=== PATIENT | female | born 1950 | race Two or more races ===

== ENCOUNTER 2017-10-03 10:13 | Outpatient (CLI) | payer OTHER ==
[~2017-10-03 10:13] MED LIST: KETO10TA2 PO
== END 2017-10-03 11:23 | disposition home or self-care (01) ==
LOC: SONOGRAMA 10:13
DX: E04.1 Nontoxic single thyroid nodule (principal); E03.8 Other specified hypothyroidism

== ENCOUNTER → 2018-01-31 | Day surgery (SDC) | payer OTHER ==
[~2018-01-31] MED LIST changes: +COZAAR50 MG PO; +PERCOCET 5-3251 EACH PO; +SYNTHROID50 MCG PO; +ZOCOR20 MG PO
== END | disposition home or self-care (01) ==
LOC: ADM 01-24 08:30 → CIR.AMB 05:55 → EDSTATUS 08:30 → CIR.AMB 08:30
DX: D34 Benign neoplasm of thyroid gland (principal)

== ENCOUNTER 2018-10-10 07:37 | Outpatient (CLI) | payer OTHER | END 2018-10-10 07:54 | disposition home or self-care (01) | LOC: MAMO-SONO 07:37 | DX: Z12.31 Encounter for screening mammogram for malignant neoplasm of breast (principal); Z87.898 Personal history of other specified conditions; N60.12 Diffuse cystic mastopathy of left breast; N60.11 Diffuse cystic mastopathy of right breast; R10.2 Pelvic and perineal pain; R10.11 Right upper quadrant pain; E66.3 Overweight; M89.8X0 Other specified disorders of bone, multiple sites; D25.1 Intramural leiomyoma of uterus; N83.201 Unspecified ovarian cyst, right side; N83.202 Unspecified ovarian cyst, left side; N83.8 Other noninflammatory disorders of ovary, fallopian tube and broad ligament; N83.292 Other ovarian cyst, left side; N83.291 Other ovarian cyst, right side ==

== ENCOUNTER 2019-01-07 13:26 | Outpatient (CLI) | payer OTHER | END 2019-01-07 13:27 | disposition home or self-care (01) | LOC: MAMO-SONO 13:26 | DX: E04.2 Nontoxic multinodular goiter (principal) ==

== ENCOUNTER → 2020-07-14 | Outpatient (CLI) | payer OTHER | END | disposition home or self-care (01) | LOC: MAMO-SONO 07:15 | PROVIDERS: ATTEND Obstetrics & Gynecology Gynecology | DX: D25.1 Intramural leiomyoma of uterus (principal); Q44.6 Cystic disease of liver; Z12.31 Encounter for screening mammogram for malignant neoplasm of breast; N60.12 Diffuse cystic mastopathy of left breast; N60.11 Diffuse cystic mastopathy of right breast; R92.1 Mammographic calcification found on diagnostic imaging of breast; E66.3 Overweight; M89.8X8 Other specified disorders of bone, other site; R10.2 Pelvic and perineal pain; R10.11 Right upper quadrant pain; N83.9 Noninflammatory disorder of ovary, fallopian tube and broad ligament, unspecified; N83.291 Other ovarian cyst, right side; N83.292 Other ovarian cyst, left side ==

== ENCOUNTER 2021-01-15 09:02 | Outpatient (CLI) | payer OTHER | END 2021-01-15 09:36 | disposition home or self-care (01) | LOC: RAD 09:02 | PROVIDERS: ATTEND Obstetrics & Gynecology Gynecology | DX: N63.11 Unspecified lump in the right breast, upper outer quadrant (principal); N63.12 Unspecified lump in the right breast, upper inner quadrant; N63.0 Unspecified lump in unspecified breast; N60.12 Diffuse cystic mastopathy of left breast; N60.11 Diffuse cystic mastopathy of right breast; R92.1 Mammographic calcification found on diagnostic imaging of breast; E66.3 Overweight; M89.8X0 Other specified disorders of bone, multiple sites; D25.1 Intramural leiomyoma of uterus; M15.8 Other polyosteoarthritis; M54.5 Low back pain; M47.817 Spondylosis without myelopathy or radiculopathy, lumbosacral region ==

== ENCOUNTER 2022-11-29 08:06 | Outpatient (CLI) | payer OTHER | END 2022-11-29 08:13 | disposition home or self-care (01) | LOC: MAMO-SONO 08:06 | PROVIDERS: ATTEND Obstetrics & Gynecology Gynecology | DX: N63.11 Unspecified lump in the right breast, upper outer quadrant (principal); N60.11 Diffuse cystic mastopathy of right breast; N60.12 Diffuse cystic mastopathy of left breast; R10.11 Right upper quadrant pain; R10.12 Left upper quadrant pain; N83.291 Other ovarian cyst, right side ==

== ENCOUNTER 2023-06-21 10:03 | Outpatient (CLI) | payer OTHER | END 2023-06-21 10:06 | disposition home or self-care (01) | LOC: SONOGRAMA 10:03 | PROVIDERS: ATTEND Obstetrics & Gynecology Gynecology | DX: N60.11 Diffuse cystic mastopathy of right breast (principal); N63.11 Unspecified lump in the right breast, upper outer quadrant; N60.19 Diffuse cystic mastopathy of unspecified breast ==

== ENCOUNTER → 2023-06-30 | Outpatient (CLI) | payer OTHER | END | disposition home or self-care (01) | LOC: NUCLEAR 10:30 | PROVIDERS: ATTEND Obstetrics & Gynecology Gynecology | DX: M81.0 Age-related osteoporosis without current pathological fracture (principal); M89.9 Disorder of bone, unspecified; M85.9 Disorder of bone density and structure, unspecified ==

== ENCOUNTER 2024-07-31 07:54 | Outpatient (CLI) | payer OTHER | END 2024-07-31 08:00 | disposition home or self-care (01) | LOC: MAMO-SONO 07:54 | PROVIDERS: ATTEND Obstetrics & Gynecology Gynecology | DX: N60.19 Diffuse cystic mastopathy of unspecified breast (principal); N60.12 Diffuse cystic mastopathy of left breast; N60.11 Diffuse cystic mastopathy of right breast; N83.209 Unspecified ovarian cyst, unspecified side; N83.292 Other ovarian cyst, left side; N83.291 Other ovarian cyst, right side; R92.1 Mammographic calcification found on diagnostic imaging of breast; R92.0 Mammographic microcalcification found on diagnostic imaging of breast; E66.3 Overweight; M89.9 Disorder of bone, unspecified; D25.1 Intramural leiomyoma of uterus; Z12.31 Encounter for screening mammogram for malignant neoplasm of breast ==